=== PATIENT | female | born 1940 | race Caucasian/White ===

== ENCOUNTER 2017-08-15 07:41 | Outpatient (CLI) | payer BC | END 2017-08-15 07:42 | disposition home or self-care (01) | LOC: BICMRI 07:41 | PROVIDERS: ATTEND Orthopaedic Surgery | DX: M25.512 Pain in left shoulder (principal); M25.511 Pain in right shoulder; M25.812 Other specified joint disorders, left shoulder; M25.811 Other specified joint disorders, right shoulder; M19.011 Primary osteoarthritis, right shoulder ==

== ENCOUNTER 2018-03-27 13:31 | Outpatient (CLI) | payer MEDICARE, BC | END 2018-03-27 13:32 | disposition home or self-care (01) | LOC: BICULT 13:31 | PROVIDERS: ATTEND Physician Assistant | DX: R10.11 Right upper quadrant pain (principal) | CPT/HCPCS: 76705 ==

== ENCOUNTER 2018-07-10 16:15 | Outpatient (CLI) | payer MEDICARE | END 2018-07-10 16:16 | disposition home or self-care (01) | LOC: BICMAMMO 16:15 | PROVIDERS: ATTEND Family Medicine | DX: Z12.31 Encounter for screening mammogram for malignant neoplasm of breast (principal); R92.1 Mammographic calcification found on diagnostic imaging of breast | CPT/HCPCS: 77063; 77067 ==

== ENCOUNTER 2019-07-12 16:05 | Outpatient (CLI) | payer MEDICARE ==
--- NOTE | 2019-07-12 16:27 | MMO ---
Bilateral MAMMO Bilat Screen [facility]. CLINICAL HISTORY: Patient is 78 years old and is seen for screening. The patient has no family history of breast cancer. The patient has no personal history of cancer. VIEWS: The views performed were: bilateral craniocaudal with tomosynthesis and bilateral mediolateral oblique with tomosynthesis. FILMS COMPARED: The present examination has been compared to prior imaging studies performed at [facility] on 10/20/2013, 02/01/2015, 02/23/2016 and 07/10/2018. This study has been interpreted with the assistance of computer-aided detection. MAMMOGRAM FINDINGS: There are scattered fibroglandular densities. There are stable benign appearing calcifications seen in both breasts. There are no suspicious masses, suspicious calcifications, or new areas of architectural distortion. IMPRESSION: THERE IS NO MAMMOGRAPHIC EVIDENCE OF MALIGNANCY. A ROUTINE FOLLOW-UP MAMMOGRAM IN 1 YEAR IS RECOMMENDED. THE RESULTS OF THIS EXAM WERE SENT TO THE PATIENT. ACR BI-RADS Category 2 - Benign finding MAMMOGRAPHY NOTE: 1. A negative mammogram report should not delay a biopsy if a dominant of clinically suspicious mass is present. 2. Approximately 10% to 15% of breast cancers are not detected by mammography. 3. Adenosis and dense breasts may obscure an underlying neoplasm. Reported by: CASANDRA CRUZ MD Electonically Signed: [id number]
== END 2019-07-12 16:06 | disposition home or self-care (01) ==
LOC: BICMAMMO 16:05
PROVIDERS: ATTEND Family Medicine
DX: Z12.31 Encounter for screening mammogram for malignant neoplasm of breast (principal)
CPT/HCPCS: 77063; 77067

== ENCOUNTER 2019-07-28 12:53 | Outpatient (CLI) | payer MEDICARE ==
--- NOTE | 2019-07-28 13:28 | RAD ---
RIGHT KNEE TWO VIEWS: HISTORY: Bilateral primary osteoarthritis. COMPARISON: None. FINDINGS: There is articular surface remodeling and joint space height loss of the lateral compartment with scl erosis and osteophyte formation. Small joint effusion. There is moderate osteophyte formation of the patella. Small marginal osteophytes in the medial compartment. IMPRESSION: High-grade tricompartment degenerative change, greatest in the lateral compartment. POS: TPC
--- NOTE | 2019-07-28 13:29 | RAD ---
LEFT KNEE TWO VIEWS: HISTORY: Bilateral primary osteoarthritis of the knee. FINDINGS: Mild arthrosis changes involving all three compartments. No acute fracture or dislocation. IMPRESSION: Mild left knee arthrosis. POS: OFF
== END 2019-07-28 12:54 | disposition home or self-care (01) ==
LOC: BICRAD 12:53
PROVIDERS: ATTEND Internal Medicine Rheumatology
DX: M17.0 Bilateral primary osteoarthritis of knee (principal)

== ENCOUNTER 2019-11-12 11:55 | Outpatient (CLI) | payer MEDICARE ==
--- NOTE | 2019-11-12 15:19 | MRI ---
MRI OF THE LEFT KNEE 11/12/19 PROVIDED CLINICAL HISTORY: Pain. FINDINGS: Comparison is made with radiographs dated 07/28/19. The anterior cruciate ligament, posterior cruciate ligament, medial collateral ligament and lateral c ollateral ligamentous complex demonstrate an intact MR appearance as does the extensor mechanism. The re is high grade partial thickness insertional tearing involving the semimembranosus tendon. There is conspicuous alteration involving the subarticular portions of the central weightbearing medi al femoral condyle and medial tibial plateau. There is associated depression of the cortical bone inv olving the medial femoral condyle with diminished signal intensity on T1 and T2 sequences involving t he subchondral bone. There is extensive articular cartilage absence involving the central weightbeari ng portions of the medial femorotibial joints. There is an 8 mm intra-articular body within the centr al aspects of the suprapatellar bursa in the immediate prefemoral region. There is a displaced flap tear involving the body of the lateral meniscus. There is extensive complex degenerative tearing involving the body of the medial meniscus as well as a full thickness root tear involving the posterior root. There is articular cartilage absence involving much of the medial facet of the patella. Articular car tilage irregularity is seen involving the lateral femoral condyle posteriorly. There is a large knee joint effusion with ruptured Mcgee's cyst. Regional muscular signal appears unr emarkable. IMPRESSION: 1. Medial and lateral meniscal tears as described. 2. Findings compatible with advanced changes of insufficiency fracture involving the medial tibi al plateau and medial femoral condyle with extensive medial femorotibial articular chondral loss. 3. Large knee joint effusion with intra-articular body. 4. High grade partial thickness insertional tearing of the semimembranosus. POS: VANESA
== END 2019-11-12 11:56 | disposition home or self-care (01) ==
LOC: MRI 11:55
PROVIDERS: ATTEND Internal Medicine Rheumatology
DX: M17.12 Unilateral primary osteoarthritis, left knee (principal); S83.282A Other tear of lateral meniscus, current injury, left knee, initial encounter; S83.242A Other tear of medial meniscus, current injury, left knee, initial encounter; M25.462 Effusion, left knee

== ENCOUNTER 2020-01-10 05:05 | Day surgery (SDC) | payer MEDICARE ==
[2020-01-03 11:19] VITALS: BMI 25.0
--- NOTE | 2020-01-06 13:26 | HP ---
HISTORY OF PRESENT ILLNESS: The patient is an 79-year-old female with a long history of progressive degenerative arthritis of both knees. Initially, her right knee bothers her the most, but over the past 6 months, she has noticed progressive problems with the left knee without injury. Her pain has progressed to the point of almost incapacitation with difficulty walking, sleeping, getting dressed. She has had progressive symptoms despite restriction of activities, anti-inflammatory medications, cortisone and Synvisc injections. PAST MEDICAL HISTORY: As noted above. The patient has history of hyperlipidemia, hypertension, and thyroid problems. She recently had an episode of cellulitis of her left arm, which resolved with antibiotics. CURRENT MEDICATIONS: Include: 1. Losartan. 2. Duloxetine. 3. Levothyroxine. 4. Calcium. 5. Simvastatin. 6. Celebrex. 7. Risedronate. 8. Propranolol. ALLERGIES: SHE HAS NO KNOWN ALLERGIES. FAMILY HISTORY: Otherwise unremarkable. SOCIAL HISTORY: Otherwise unremarkable. REVIEW OF SYSTEMS: Otherwise unremarkable. The patient lives with her . PHYSICAL EXAMINATION: GENERAL: Reveals a healthy female. HEENT: Unremarkable. NECK: Supple. CHEST: Clear. HEART: Regular rate and rhythm. ABDOMEN: Soft, nontender. PELVIC: Deferred. RECTAL: Deferred. BREASTS: Deferred. EXTREMITIES: Pertinent findings related to her knees, examination of the left knee reveals mild varus. There is puffiness, but no definite effusion. There is tenderness on the medial joint line, crepitus with range of motion. Range of motion is 5 to 120 degrees. There is good capillary refill. There are mild venous varicosities. There is a left antalgic gait. NEUROVASCULAR: Intact. Examination of the right knee reveals mild valgus and lateral joint line tenderness or crepitus with range of motion. 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 X-rays of the right knee reveal severe DJD with minimal joint space remaining. IMPRESSION: Degenerative arthritis of both knees, left symptomatic more than right with probable osteonecrosis. PLAN: Left total knee replacement. She may ultimately require right total knee replacement. Her hospital stay may be longer than usual because of the significant arthritis and her contralateral knee. The nature of the surgery, length, recovery, potential complications such as infection, loss of motion, incomplete relief, thromboembolic phenomena, neurovascular injury, possible transfusion, and need for revision have been discussed in detail. Job ID: [id number]
[2020-01-10] MEDS ORDERED: Vancomycin 1 GM/200 ML BAG ONE (06:05)
[2020-01-10] MEDS ORDERED: Sodium Chloride 0.9% 100 ML ONE (06:05)
[2020-01-10] MEDS ORDERED: Tranexamic Acid 1,000 MG/10 ML VIAL ONE ×2 (06:05→09:20)
[2020-01-10] MEDS ORDERED: Fentanyl 100 MCG/2 ML VIAL ONE ×4 (06:17→09:49)
[2020-01-10] MEDS ORDERED: Midazolam HCl 2 mg/2 ml Vial ONE (06:17)
[2020-01-10] MEDS ORDERED: Lidocaine 1% (PF) 30 ML VIAL ONE (06:17)
[2020-01-10] MEDS ORDERED: Lidocaine 1% w/Epinephrine 1:100K 20 ML VIAL ONE (06:38)
[2020-01-10] MEDS ORDERED: Bupivacaine 0.25% HCL 30 ML VIAL ONE (06:38)
[2020-01-10] MEDS ORDERED: traMADol HCl 50 MG TAB PO PRN ×3 (06:51→09:11)
[2020-01-10] MEDS ORDERED: Ropivacaine HCl/PF 250 ML in Premix Bag 1 BAG NERVE BLCK SCH (06:51)
[2020-01-10] MEDS ORDERED: Promethazine HCl 25 MG/ML VIAL IM PRN ×2 (06:51→09:45)
[2020-01-10] MEDS ORDERED: Ondansetron PF 4 MG/2 ML Vial IVP PRN ×3 (06:51→09:45)
[2020-01-10] MEDS ORDERED: HYDROcodone/Acetaminophen 10/325 mg Tablet PO PRN ×4 (06:51→09:11)
[2020-01-10] MEDS ORDERED: Zolpidem Tartrate 5 MG TAB PO PRN ×3 (06:51→09:45)
[2020-01-10] MEDS ORDERED: Fentanyl 100 MCG/2 ML VIAL IV PRN (06:52)
[2020-01-10] MEDS ORDERED: Ondansetron HCl/PF 4 MG/2 ML Vial IVP PRN (09:04)
[2020-01-10] MEDS ORDERED: ESTRADIOL PO SCH (09:11)
[2020-01-10] MEDS ORDERED: diphenhydrAMINE 25 MG CAP PO PRN ×2 (09:11→09:45)
[2020-01-10] MEDS ORDERED: RISEDRONATE SODIUM 35 MG PO SCH (09:11)
[2020-01-10] MEDS ORDERED: Levothyroxine Sodium 88 MCG TAB PO SCH (09:11)
[2020-01-10] MEDS ORDERED: Tranexamic Acid 1,000 MG in Sodium Chloride 0.9% 100 ML IVPB SCH ×2 (09:11→09:15)
[2020-01-10] MEDS ORDERED: Fentanyl 100 MCG/2 ML VIAL SLOW IVP PRN ×2 (09:11)
[2020-01-10] MEDS ORDERED: Promethazine HCl 25 MG/ML VIAL SLOW IVP PRN (09:11)
--- NOTE | 2020-01-10 09:26 | OP ---
DATE OF PROCEDURE: 01/10/2020 [employer]: Lashanda Sun PA-C ANESTHESIA: General plus adductor canal and sciatic nerve blocks. 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 DESCRIPTION OF PROCEDURE: After satisfactory anesthesia was induced in a position, sequential compression devices were placed on the nonoperative leg throughout the procedure. The left leg was then prepped and draped in a routine sterile fashion, elevated and exsanguinated with an Esmarch bandage and the tourniquet inflated to 300 mmHg. A gently curved medial parapatellar incision was made, carried down to the subcutaneous tissues, and bleeding points were controlled with Bovie cautery. Medial parapatellar arthrotomy was performed. Patella was cleared laterally and portion of the fat pad were excised for exposure. There was marked degenerative arthritis of the knee, especially medially. There was a large area of osteonecrosis and partial collapse of the medial femoral condyle. It did not involve the rim. There was some lesion on the medial tibial plateau. Meniscal remnants and osteophytes were removed. Using the [employer] pinless navigation system and the appropriate guides, the distal femoral and proximal tibial articular surfaces were excised to accept the trial components. After excising the distal femoral surface, there was still slight defect in the femur, which was only a few mm thick. This did not appear to compromise the stability of the implants. I elected to fill this with bone cement instead of bone graft. It was felt that a #4 femoral component and #4 tibial baseplate with 11 mm CS plastic insert gave appropriate size, fit, and stability. The patellar articular surface was sized to accept an all-plastic A29 patellar component. There was good range of motion and good patellar tracking. The trial components were removed. The knee was copiously irrigated with pulsatile lavage, and the bony surfaces were thoroughly cleaned and dried. The permanent components were then cemented in a single stage using one pack of cement premixed with 1 g of tobramycin powder. Excess cement was removed. There was again good fit and stability of the components. The knee was again copiously irrigated with pulsatile lavage. The medial retinaculum and quadriceps mechanism was closed with interrupted #2 Vicryl and a running #2 Quill. The subcutaneous tissues and skin were infiltrated with a mixture of 30 mL of 0.25% plain Marcaine and 20 mL of 1% lidocaine with epinephrine. The subcutaneous tissues were closed with a running 0 Quill suture and the skin was closed with running subcuticular 3-0 Monoderm and Surgicel skin adhesive. Sterile bulky compressive dressing was applied and the tourniquet was deflated after 76 minutes. The foot promptly pinked up. Sequential compression devices were placed on the operated leg and she was awakened and taken to recovery room in stable condition. There were no apparent intraoperative complications. The estimated blood loss was less than 100 mL. Job ID: [id number] [facility]
--- NOTE | 2020-01-10 09:42 | RAD ---
Exam:2 views left knee HISTORY: Status post arthroplasty. Primary osteoarthritis. COMPARISON: 07/28/2019 FINDINGS: Expected postoperative changes. Preserved joint spaces. No malalignment or fracture. IMPRESSION: Expected postoperative changes compatible with left knee arthroplasty
[2020-01-10] MEDS ORDERED: diphenhydrAMINE 50 MG/ML VIAL IVP PRN (09:45)
[2020-01-10] MEDS ORDERED: Communication Order-Pharmacy FS SCH (09:45)
[2020-01-10] MEDS ORDERED: Naloxone HCl 0.4 mg/ml Vial IV PRN (09:45)
[2020-01-10] MEDS ORDERED: fentaNYL Citrate/PF 2,000 MCG in Sodium Chloride 0.9% 60 ML IV PRN (09:45)
[2020-01-10] MEDS ORDERED: diphenhydrAMINE 50 MG/ML VIAL IM PRN (09:45)
[2020-01-10] MEDS ORDERED: Ropivacaine 0.2% HCl/PF (40 MG/20 ML VIAL) ONE (11:07)
[2020-01-10] MEDS ORDERED: Ondansetron PF 4 MG/2 ML Vial ONE (11:07)
[2020-01-10] MEDS ORDERED: Ropivacaine 0.5% HCl/PF (150 MG/30 ML VIAL) ONE (11:07)
[2020-01-10] MEDS ORDERED: PROPOFOL 200 MG/20 ML VIAL ONE (11:07)
[2020-01-10] MEDS ORDERED: Ketorolac Tromethamine 30 MG/ML VIAL ONE (11:07)
[2020-01-10] MEDS ORDERED: Dexamethasone 20 MG/5 ML VIAL ONE (11:07)
[2020-01-10] MEDS: Sodium Chloride 0.9% 1,000 ML IV SCH ×2 (11:45→17:38)
[2020-01-10] MEDS ORDERED: Ketorolac Tromethamine 30 MG/ML VIAL IVP SCH ×2 (12:00)
[2020-01-10] MEDS ORDERED: RISEDRONATE SODIUM PO SCH (12:00)
[2020-01-10] MEDS: CEFAZOLIN 2 GM in Premix Bag 1 BAG IVPB SCH ×2 (14:58→21:41)
[2020-01-10] MEDS ORDERED: Vancomycin 1 GM in Premix Bag 1 BAG IVPB SCH (18:00)
[2020-01-10] MEDS ORDERED: Simvastatin 40 MG TAB PO SCH (21:00)
[2020-01-10] MEDS: Atorvastatin Calcium 20 MG TAB PO SCH (21:40)
[2020-01-10] MEDS: Senokot S 8.6-50 MG TAB PO SCH (21:40)
[2020-01-10] MEDS: Aspirin 81 mg Enteric Coated Tablet PO SCH (21:40)
[2020-01-11 05:13] LABS: Hemoglobin 10.3 g/dL (12.0-16.0); Mean Corpuscular HGB CONC 32.1 g/dL (32.0-36.0); Mean Corpuscular Hemoglobin 31.4 pg (27.0-31.0); Mean Corpuscular Volume 97.7 fL (78.0-98.0); Platelet Count 244 thou/uL (130-400); RBC Distribution Width 11.5 % (11.5-14.5); Red Blood Cell (RBC) Count 3.28 mill/uL (4.20-5.40); White Blood Cell (WBC) Count 12.1 thou/uL (4.8-10.8)
[2020-01-11] MEDS: Sodium Chloride 0.9% 1,000 ML IV SCH ×2 (07:19→11:15)
[2020-01-11] MEDS: Losartan/Hydrochlorothiazide 100 mg/25 mg Tablet PO SCH (09:47)
[2020-01-11] MEDS: Estradiol 1 MG TAB PO SCH (09:48)
[2020-01-11] MEDS: DULoxetine 60 MG CAP PO SCH (09:48)
[2020-01-11] MEDS: Aspirin 81 mg Enteric Coated Tablet PO SCH ×2 (09:48→20:31)
[2020-01-11] MEDS: Levothyroxine Sodium 88 MCG TAB PO SCH (09:48)
[2020-01-11] MEDS: Multivitamin W/ Minerals 1 TAB PO SCH (09:48)
[2020-01-11] MEDS: Senokot S 8.6-50 MG TAB PO SCH ×2 (09:48→20:31)
[2020-01-11] MEDS ORDERED: Ketorolac Tromethamine 30 MG/ML VIAL IVP PRN (15:39)
[2020-01-11] MEDS ORDERED: Ketorolac Tromethamine 30 MG/ML VIAL IVP SCH (15:45)
[2020-01-11] MEDS: Acetaminophen 325 MG TAB PO PRN (15:55)
[2020-01-11] MEDS: Atorvastatin Calcium 20 MG TAB PO SCH (20:31)
[2020-01-12] MEDS: Sodium Chloride 0.9% 1,000 ML IV SCH ×2 (01:03→12:45)
[2020-01-12] MEDS: Acetaminophen 325 MG TAB PO PRN (04:06)
[2020-01-12] MEDS: DULoxetine 60 MG CAP PO SCH (08:55)
[2020-01-12] MEDS: Aspirin 81 mg Enteric Coated Tablet PO SCH (08:55)
[2020-01-12] MEDS: Losartan/Hydrochlorothiazide 100 mg/25 mg Tablet PO SCH (08:55)
[2020-01-12] MEDS: Estradiol 1 MG TAB PO SCH (08:56)
[2020-01-12] MEDS: Levothyroxine Sodium 88 MCG TAB PO SCH (08:57)
[2020-01-12] MEDS: Senokot S 8.6-50 MG TAB PO SCH (08:57)
[2020-01-12] MEDS: Multivitamin W/ Minerals 1 TAB PO SCH (08:57)
[2020-01-12] MEDS ORDERED: HYDROcodone/Acetaminophen 10/325 mg Tablet PO PRN ×4 (10:29→11:22)
[2020-01-12] MEDS ORDERED: traMADol HCl 50 MG TAB PO PRN (10:29)
[2020-01-12] MEDS ORDERED: HYDROcodone/Acetaminophen 10/325 mg Tablet PO SCH ×2 (10:30→10:45)
[2020-01-12] MEDS ORDERED: Fentanyl 100 MCG/2 ML VIAL SLOW IVP PRN (10:30)
[2020-01-12] MEDS ORDERED: DC PCA Order Set 1 EACH FS ONE (11:22)
[2020-01-12 11:53] VITALS: BP 126/72; TEMP 97.7
== END 2020-01-12 15:28 | disposition home or self-care (01) ==
LOC: SDC 05:05 → SJJU 11:23 → SDC 01-12 15:28
PROVIDERS: ATTEND Orthopaedic Surgery
PROC: 0SRD0J9 Replacement of Left Knee Joint with Synthetic Substitute, Cemented, Open Approach (ICD-10-PCS; principal; 2020-01-10)
PROC: 8E0YXBZ Computer Assisted Procedure of Lower Extremity (ICD-10-PCS; 2020-01-10)
PROC: 3E0T3BZ Introduction of Anesthetic Agent into Peripheral Nerves and Plexi, Percutaneous Approach (ICD-10-PCS; 2020-01-10)
PROC: 3E0T3BZ Introduction of Anesthetic Agent into Peripheral Nerves and Plexi, Percutaneous Approach (ICD-10-PCS; 2020-01-10)
DX: M17.0 Bilateral primary osteoarthritis of knee (principal); M87.88 Other osteonecrosis, other site; M21.061 Valgus deformity, not elsewhere classified, right knee; G89.18 Other acute postprocedural pain; E78.5 Hyperlipidemia, unspecified; I10 Essential (primary) hypertension; Z79.83 Long term (current) use of bisphosphonates; Z79.899 Other long term (current) drug therapy
CPT/HCPCS: 20985; 27447; 64445; 64448; 73560; 85027; 97110 ×3; 97116 ×3; 97139 ×4; 97530; C1713; C1776; J3010 ×2; 36415; J0690; J1100; J1885; J2001; J2250; J2405; J2704; J2795; J3370; J3490; S0020

== ENCOUNTER 2020-07-14 10:29 | Outpatient (CLI) | payer MEDICARE ==
--- NOTE | 2020-07-14 11:28 | MMO ---
Bilateral MAMMO Bilat Screen [facility]. CLINICAL HISTORY: Patient is 79 years old and is seen for screening. The patient has no family history of breast cancer. The patient has no personal history of cancer. VIEWS: The views performed were: bilateral craniocaudal with tomosynthesis and bilateral mediolateral oblique with tomosynthesis. FILMS COMPARED: The present examination has been compared to prior imaging studies performed at [facility] on 02/01/2015, 02/23/2016, 07/10/2018 and 07/12/2019. This study has been interpreted with the assistance of computer-aided detection. MAMMOGRAM FINDINGS: There are scattered fibroglandular densities. There are stable benign appearing calcifications seen in both breasts. There are no suspicious masses, suspicious calcifications, or new areas of architectural distortion. IMPRESSION: THERE IS NO MAMMOGRAPHIC EVIDENCE OF MALIGNANCY. A ROUTINE FOLLOW-UP MAMMOGRAM IN 1 YEAR IS RECOMMENDED. THE RESULTS OF THIS EXAM WERE SENT TO THE PATIENT. ACR BI-RADS Category 2 - Benign finding MAMMOGRAPHY NOTE: 1. A negative mammogram report should not delay a biopsy if a dominant of clinically suspicious mass is present. 2. Approximately 10% to 15% of breast cancers are not detected by mammography. 3. Adenosis and dense breasts may obscure an underlying neoplasm. Reported by: CASANDRA CRUZ MD Electonically Signed: [id number]
--- NOTE | 2020-07-14 11:36 | BD ---
BONE DENSITOMETRY USING DEXA: Date: 07/14/2020 HISTORY: Postmenopausal screening for osteoporosis. FINDINGS: Lumbar Spine: BMD (g/cm2) L1 0.949 T-Score: -0.4 Z-Score: 2.0 L2 0.988 T-Score: -0.4 Z-Score: 2.3 L3 1.133 T-Score: 0.4 Z-Score: 3.2 L4 1.329 T-Score: 2.4 Z-Score: 5.3 L1-L4 1.130 T-Score: 0.8 Z-Score: 3.5 Right Hip: Neck 0.714 T-Score: -1.2 Z-Score: 1.1 Total 0.872 T-Score: -0.6 Z-Score: 1.5 Left Hip: Neck 0.707 T-Score: -1.3 Z-Score: 1.1 Total 0.814 T-Score: -1.0 Z-Score: 1.1 IMPRESSION: Osteopenia. POS: RIA
== END 2020-07-14 10:30 | disposition home or self-care (01) ==
LOC: BICMAMMO 10:29
PROVIDERS: ATTEND Family Medicine
DX: Z12.31 Encounter for screening mammogram for malignant neoplasm of breast (principal); M81.0 Age-related osteoporosis without current pathological fracture; M85.851 Other specified disorders of bone density and structure, right thigh; M85.852 Other specified disorders of bone density and structure, left thigh
CPT/HCPCS: 77063; 77067; 77080

== ENCOUNTER 2021-06-11 14:30 | Outpatient (CLI) | payer MEDICARE | END 2021-06-11 14:31 | disposition home or self-care (01) | LOC: BICRAD 14:30 | PROVIDERS: ATTEND Family Medicine | DX: R42 Dizziness and giddiness (principal) | CPT/HCPCS: 71046 ==

== ENCOUNTER 2021-07-10 07:03 | Day surgery (SDC) | payer MEDICARE ==
[2021-07-05 11:39] VITALS: BMI 25.2
[2021-07-10 07:55] VITALS: BP 134/58; TEMP 97.8
[2021-07-10 10:37] LABS: CSF, Glucose 60 mg/dl (40-70); CSF, Protein 46 mg/dL (15-40)
[2021-07-10 10:47] LABS: Color Of CSF Supernatant COLORLESS (Colorless); Tube # 1; Unspun CSF Color COLORLESS (Colorless)
[2021-07-10 11:23] LABS: CSF RBC Count - Manual 0 /cu.mm (None Seen); CSF Source CSF; CSF WBC/NonHematics Count-Man 0 /cu.mm (0-5); Clarity Clear (Clear); Tube # 4
== END 2021-07-10 10:15 | disposition home or self-care (01) ==
LOC: RAD 07:03
PROVIDERS: ATTEND Psychiatry & Neurology Neurology
PROC: 009U3ZX Drainage of Spinal Canal, Percutaneous Approach, Diagnostic (ICD-10-PCS; principal; 2021-07-10)
DX: G93.2 Benign intracranial hypertension (principal); I10 Essential (primary) hypertension; E78.5 Hyperlipidemia, unspecified; E03.9 Hypothyroidism, unspecified; G25.81 Restless legs syndrome; M75.41 Impingement syndrome of right shoulder; M75.42 Impingement syndrome of left shoulder; F17.210 Nicotine dependence, cigarettes, uncomplicated; M19.90 Unspecified osteoarthritis, unspecified site; Z86.73 Personal history of transient ischemic attack (TIA), and cerebral infarction without residual deficits; Z79.899 Other long term (current) drug therapy
CPT/HCPCS: 62270; 82945; 84157; 89051

== ENCOUNTER 2021-07-27 10:16 | Outpatient (CLI) | payer MEDICARE | END 2021-07-27 10:17 | disposition home or self-care (01) | LOC: BICMAMMO 10:16 | PROVIDERS: ATTEND Family Medicine | DX: Z12.31 Encounter for screening mammogram for malignant neoplasm of breast (principal); M81.0 Age-related osteoporosis without current pathological fracture; M85.852 Other specified disorders of bone density and structure, left thigh; M85.851 Other specified disorders of bone density and structure, right thigh | CPT/HCPCS: 77063; 77067; 77080 ==

== ENCOUNTER 2021-08-01 08:37 | Outpatient (CLI) | payer MEDICARE ==
[2021-08-01] MEDS ORDERED: Iopamidol-370 76% 500 ML 1 ML ONE (09:31)
== END 2021-08-01 08:38 | disposition home or self-care (01) ==
LOC: BICCT 08:37
PROVIDERS: ATTEND Psychiatry & Neurology Neurology
DX: G44.221 Chronic tension-type headache, intractable (principal)
CPT/HCPCS: 70470; 82565; Q9967

== ENCOUNTER 2021-10-18 09:29 | Outpatient (CLI) | payer MEDICARE | END 2021-10-18 09:30 | disposition home or self-care (01) | LOC: BICCT 09:29 | PROVIDERS: ATTEND Physician Assistant Medical | DX: R10.32 Left lower quadrant pain (principal); K59.00 Constipation, unspecified; R14.0 Abdominal distension (gaseous); R14.2 Eructation | CPT/HCPCS: 74177; 82565 ==

== ENCOUNTER 2022-04-16 09:38 | Outpatient (CLI) | payer MEDICARE | END 2022-04-16 09:39 | disposition home or self-care (01) | LOC: MRI 09:38 | PROVIDERS: ATTEND Psychiatry & Neurology Neurology | DX: G93.2 Benign intracranial hypertension (principal); I67.89 Other cerebrovascular disease | CPT/HCPCS: 70551 ==

== ENCOUNTER 2022-09-02 05:34 | Inpatient (IN) | payer MEDICARE ==
[2022-08-28 11:53] LABS: #Basophils 0.1 10x3/uL (0.0-0.2); #Monocytes 0.7 10x3/uL (0.0-1.1); #Neutrophils 3.5 10x3/uL (1.5-8.4); %Eosinophils 0.5 % (0.0-6.0); %Lymphocytes 27.3 % (18.0-47.0); %Monocytes 11.9 % (0.0-10.0); %Neutrophils 59.1 % (40.0-75.0); Bilirubin Neg (Negative); Blood, Urine Negative (Negative); Clarity Clear (Clear); Glucose, Urine (Dipstick) Normal (Negative); Hemoglobin 13.3 g/dL (12.0-15.5); Ketone, Urine Negative (Negative); Leukocyte Negative (Negative); Mean Corpuscular HGB CONC 32.5 g/dL (32.0-36.0); Mean Corpuscular Hemoglobin 30.3 pg (27.0-33.0); Mean Corpuscular Volume 93.2 fl (81.6-98.3); Mean Platelet Volume 11.7 fl (7.4-10.4); Nitrite Negative (Negative); Platelet Count 251 10x3/uL (150-450); Protein, Urine (Dipstick) Negative (Neg-Trace); Red Blood Cell (RBC) Count 4.39 10x6/uL (3.90-5.03); Urobilinogen Normal mg/dL (Less than 2)
[2022-08-28 12:06] LABS: INR-International Normal Ratio 0.9
[2022-08-28 12:08] LABS: Anion Gap 16 mmol/L (10-20); BUN (Urea Nitrogen) 25 mg/dL (9.8-20.1); Calc. Creatinine Clearance 0 mL/min (70-130); Calcium 9.7 mg/dL (7.8-10.44); Carbon Dioxide 24 mmol/L (23-31); Chloride 103 mmol/L (98-107); Estimated GFR 54; Glucose 90 mg/dL (83-110); Potassium 3.7 mmol/L (3.5-5.1); Sodium 139 mmol/L (136-145)
[2022-08-29 15:42] VITALS: BMI 28.5
[2022-09-02] MEDS ORDERED: fentaNYL PF 100 MCG/2 ML SYRINGE ONE ×2 (05:47→08:40)
[2022-09-02] MEDS ORDERED: PHENYLEPHRINE-NS 100 MCG/ML 10 ML SYRINGE ONE (05:48)
[2022-09-02] MEDS ORDERED: CEFAZOLIN 2 GM VIAL ONE ×2 (06:20→06:52)
[2022-09-02] MEDS ORDERED: Sodium Chloride 0.9% 100 ML ONE ×2 (06:20→06:52)
[2022-09-02] MEDS ORDERED: Tranexamic Acid 1,000 MG/10 ML VIAL ONE ×2 (06:20→09:31)
[2022-09-02] MEDS ORDERED: Vancomycin 1 GM/200 ML (FROZEN) BAG ONE (06:24)
[2022-09-02] MEDS ORDERED: Midazolam HCl 2 mg/2 ml Vial ONE (06:29)
[2022-09-02] MEDS ORDERED: PROPOFOL 200 MG/20 ML VIAL ONE (06:30)
[2022-09-02] MEDS ORDERED: Dexamethasone 20 MG/5 ML VIAL ONE (06:30)
[2022-09-02] MEDS ORDERED: ePHEDrine 50 MG/ML VIAL ONE (06:30)
[2022-09-02] MEDS ORDERED: Lidocaine 1% PF 5 ML VIAL ONE (06:30)
[2022-09-02] MEDS ORDERED: Ondansetron PF 4 MG/2 ML Vial ONE (06:30)
[2022-09-02] MEDS ORDERED: Ketorolac Tromethamine 30 MG/ML VIAL ONE (06:30)
[2022-09-02 06:42] LABS: SARS-CoV-2 NAA Rapid Test Not Detected (NotDetected)
[2022-09-02] MEDS ORDERED: Bupivacaine 0.25% HCL 30 ML VIAL ONE (06:52)
[2022-09-02] MEDS ORDERED: Lidocaine 2% 6 ML SYR ONE (07:16)
[2022-09-02] MEDS ORDERED: Ondansetron PF 4 MG/2 ML Vial IVP PRN (07:23)
[2022-09-02] MEDS ORDERED: Promethazine HCl 25 MG/ML VIAL IM PRN ×2 (07:23→08:00)
[2022-09-02] MEDS ORDERED: Acetaminophen 325 MG TAB PO PRN (07:23)
[2022-09-02] MEDS ORDERED: Fentanyl 100 MCG/2 ML VIAL SLOW IVP PRN ×2 (07:23→07:58)
[2022-09-02] MEDS ORDERED: HYDROcodone/Acetaminophen 10/325 mg Tablet PO PRN ×3 (07:23→08:00)
[2022-09-02] MEDS ORDERED: diphenhydrAMINE 25 MG CAP PO PRN (07:23)
[2022-09-02] MEDS ORDERED: Zolpidem Tartrate 5 MG TAB PO PRN ×2 (07:23→08:00)
[2022-09-02] MEDS ORDERED: Non-Formulary Item 1 EACH (Ibandronate Sodium [Boniva] 150 MG Tablet) PO SCH (07:30)
[2022-09-02] MEDS ORDERED: Tranexamic Acid 1,000 MG in Sodium Chloride 0.9% 100 ML IVPB SCH (07:30)
[2022-09-02] MEDS ORDERED: traMADol HCl 50 MG TAB PO PRN (08:00)
[2022-09-02] MEDS ORDERED: Ropivacaine 0.2% 550 ML 550 ML NERVE BLCK SCH (08:00)
[2022-09-02] MEDS ORDERED: EPINEPHrine 1 MG/ML AMP ONE (08:01)
[2022-09-02] MEDS ORDERED: Lidocaine 1% (PF) 30 ML VIAL ONE (08:01)
[2022-09-02] MEDS ORDERED: Bupivacaine PF 0.5% 30 ML VIAL ONE (08:01)
[2022-09-02] MEDS ORDERED: Non-Formulary Item 1 EACH (Estradiol [Estradiol] 0.5 MG Tablet) PO SCH (09:00)
[2022-09-02] MEDS ORDERED: TOPIRAMATE 50 MG PO SCH (09:00)
[2022-09-02] MEDS ORDERED: Levothyroxine Sodium 88 MCG TAB PO SCH (09:00)
[2022-09-02] MEDS ORDERED: Fentanyl 250 MCG/5 ML VIAL ONE (09:24)
[2022-09-02] MEDS ORDERED: HYDROmorphone 0.5 MG/0.5 ML SYRINGE ONE ×4 (10:12→13:16)
[2022-09-02] MEDS ORDERED: Ketorolac Tromethamine 30 MG/ML VIAL IVP SCH ×2 (12:00→14:00)
[2022-09-02] MEDS: Senokot S 8.6-50 MG TAB PO SCH ×2 (15:56→21:06)
[2022-09-02] MEDS: Losartan/Hydrochlorothiazide 100 mg/25 mg Tablet PO SCH (15:56)
[2022-09-02] MEDS: Multivitamin W/ Minerals 1 TAB PO SCH (15:56)
[2022-09-02] MEDS: Estradiol 1 MG TAB PO SCH (15:56)
[2022-09-02] MEDS: Aspirin 81 mg Enteric Coated Tablet PO SCH ×2 (15:56→21:04)
[2022-09-02] MEDS: Levothyroxine Sodium 88 MCG TAB PO SCH (15:56)
[2022-09-02] MEDS: Ferrous Gluconate 324 MG TAB PO SCH ×2 (15:56→21:06)
[2022-09-02] MEDS: Topiramate 25 MG TAB PO SCH ×3 (15:57→21:45)
[2022-09-02] MEDS: Sodium Chloride 0.9% 1,000 ML IV SCH ×2 (16:22→17:01)
[2022-09-02] MEDS: CEFAZOLIN 2 GM in Sodium Chloride 0.9% 100 ML IVPB SCH ×2 (16:22→21:04)
[2022-09-02] MEDS: Ketorolac Tromethamine 30 MG/ML VIAL IVP SCH ×2 (16:23→21:05)
[2022-09-02] MEDS: traMADol HCl 50 MG TAB PO PRN (17:17)
[2022-09-02] MEDS ORDERED: Vancomycin 1 GM in Premix Bag 1 BAG IVPB SCH ×2 (18:00)
[2022-09-02] MEDS ORDERED: Simvastatin 40 MG TAB PO SCH (21:00)
[2022-09-02] MEDS: Metoprolol Tartrate 25 MG TAB PO SCH (21:06)
[2022-09-02] MEDS: HYDROcodone/Acetaminophen 10/325 mg Tablet PO PRN (21:06)
[2022-09-02] MEDS: Atorvastatin Calcium 20 MG TAB PO SCH (21:06)
[2022-09-02] MEDS: Ondansetron PF 4 MG/2 ML Vial IVP PRN (21:45)
[2022-09-03] MEDS: Ketorolac Tromethamine 30 MG/ML VIAL IVP SCH ×3 (03:26→17:39)
[2022-09-03] MEDS: Sodium Chloride 0.9% 1,000 ML IV SCH ×4 (03:46→22:10)
[2022-09-03] MEDS: CEFAZOLIN 2 GM in Sodium Chloride 0.9% 100 ML IVPB SCH ×2 (04:58→04:59)
[2022-09-03] MEDS ORDERED: CEFAZOLIN 2 GM in Sodium Chloride 0.9% 100 ML IVPB SCH (05:00)
[2022-09-03] MEDS: Ondansetron PF 4 MG/2 ML Vial IVP PRN ×2 (05:47→11:28)
[2022-09-03 06:21] LABS: Hemoglobin 11.8 g/dL (12.0-16.0); Mean Corpuscular HGB CONC 32.1 g/dL (32.0-36.0); Mean Corpuscular Hemoglobin 31.8 pg (27.0-31.0); Mean Platelet Volume 8.2 fL (7.4-10.4); Platelet Count 189 10x3/uL (130-400); RBC Distribution Width 11.7 % (11.5-14.5); White Blood Cell (WBC) Count 10.3 10x3/uL (4.8-10.8)
[2022-09-03] MEDS ORDERED: Promethazine HCl 12.5 MG in Sodium Chloride 0.9% 50 ML IVPB SCH (10:00)
[2022-09-03] MEDS: Aspirin 81 mg Enteric Coated Tablet PO SCH ×2 (11:22→21:30)
[2022-09-03] MEDS: Ferrous Gluconate 324 MG TAB PO SCH ×2 (11:22→21:31)
[2022-09-03] MEDS: Losartan/Hydrochlorothiazide 100 mg/25 mg Tablet PO SCH (11:23)
[2022-09-03] MEDS: Senokot S 8.6-50 MG TAB PO SCH ×2 (11:23→21:30)
[2022-09-03] MEDS: Estradiol 1 MG TAB PO SCH (11:23)
[2022-09-03] MEDS: Levothyroxine Sodium 88 MCG TAB PO SCH (11:23)
[2022-09-03] MEDS: Multivitamin W/ Minerals 1 TAB PO SCH (11:25)
[2022-09-03] MEDS: Topiramate 25 MG TAB PO SCH ×2 (11:34→21:30)
[2022-09-03] MEDS: traMADol HCl 50 MG TAB PO PRN (21:28)
[2022-09-03] MEDS: Metoprolol Tartrate 25 MG TAB PO SCH (21:29)
[2022-09-03] MEDS: Atorvastatin Calcium 20 MG TAB PO SCH (21:30)
[2022-09-03] MEDS: HYDROcodone/Acetaminophen 10/325 mg Tablet PO PRN (22:17)
[2022-09-03 22:21] LABS: Anion Gap 10 mmol/L (10-20); BUN (Urea Nitrogen) 27 mg/dL (9.8-20.1); Calc. Creatinine Clearance 31 mL/min (70-130); Calcium 8.4 mg/dL (7.8-10.44); Carbon Dioxide 25 mmol/L (23-31); Chloride 104 mmol/L (98-107); Estimated GFR 36; Glucose 107 mg/dL (83-110); Potassium 3.2 mmol/L (3.5-5.1); Sodium 136 mmol/L (136-145)
[2022-09-03] MEDS ORDERED: Electrolyte Replacement Protocol 1 EACH FS SCH (22:45)
[2022-09-04] MEDS ORDERED: Potassium Chloride 20 MEQ TAB PO SCH ×2 (02:00→08:00)
[2022-09-04] MEDS: Sodium Chloride 0.9% 1,000 ML IV SCH ×3 (05:47→12:13)
[2022-09-04] MEDS: HYDROcodone/Acetaminophen 10/325 mg Tablet PO PRN (05:53)
[2022-09-04 05:56] LABS: Hemoglobin 10.6 g/dL (12.0-16.0); Mean Corpuscular HGB CONC 32.9 g/dL (32.0-36.0); Mean Corpuscular Volume 97.3 fl (78.0-98.0); Mean Platelet Volume 8.9 fL (7.4-10.4); Platelet Count 161 10x3/uL (130-400); RBC Distribution Width 11.8 % (11.5-14.5); White Blood Cell (WBC) Count 8.6 10x3/uL (4.8-10.8)
[2022-09-04 06:03] LABS: Hemoglobin 10.8 g/dL (12.0-16.0); Mean Corpuscular HGB CONC 34.3 g/dL (32.0-36.0); Mean Corpuscular Hemoglobin 33.3 pg (27.0-31.0); Mean Corpuscular Volume 97.1 fl (78.0-98.0); Mean Platelet Volume 8.6 fL (7.4-10.4); Platelet Count 158 10x3/uL (130-400); RBC Distribution Width 11.8 % (11.5-14.5); Red Blood Cell (RBC) Count 3.24 mill/uL (4.20-5.40); White Blood Cell (WBC) Count 8.5 10x3/uL (4.8-10.8)
[2022-09-04 06:17] LABS: ALT (SGPT) Less than 7 U/L (8-55); AST (SGOT) 13 U/L (5-34); Albumin 2.9 g/dL (3.4-4.8); Alkaline Phosphatase 60 U/L (40-110); Anion Gap 8 mmol/L (10-20); BUN (Urea Nitrogen) 26 mg/dL (9.8-20.1); Bilirubin, Total 0.5 mg/dL (0.2-1.2); Calc. Creatinine Clearance 36 mL/min (70-130); Calcium 8.4 mg/dL (7.8-10.44); Carbon Dioxide 24 mmol/L (23-31); Chloride 106 mmol/L (98-107); Estimated GFR 43; Globulin 2.2 g/dL (2.4-3.5); Glucose 94 mg/dL (83-110); Magnesium 1.7 mg/dL (1.6-2.6); Potassium 3.4 mmol/L (3.5-5.1); Protein, Total 5.1 g/dL (5.8-8.1); Sodium 135 mmol/L (136-145)
[2022-09-04 06:55] LABS: Lymphocytes 16 % (21-51); MDiff Complete? YES; Monocytes 23 % (0-10); Neutrophil 61 % (42-75); Platelet Morphology Comment Appears Adequate; RBC Morphology Normal
[2022-09-04] MEDS ORDERED: Magnesium 2 GM/50 ML(in water) 2 GM in Premix Bag 1 BAG IVPB SCH (08:00)
[2022-09-04] MEDS: Losartan/Hydrochlorothiazide 100 mg/25 mg Tablet PO SCH (09:03)
[2022-09-04] MEDS: Aspirin 81 mg Enteric Coated Tablet PO SCH (09:03)
[2022-09-04] MEDS: Levothyroxine Sodium 88 MCG TAB PO SCH (09:04)
[2022-09-04] MEDS: Estradiol 1 MG TAB PO SCH (09:04)
[2022-09-04] MEDS: Multivitamin W/ Minerals 1 TAB PO SCH (09:04)
[2022-09-04] MEDS: Ferrous Gluconate 324 MG TAB PO SCH (09:07)
[2022-09-04] MEDS: Senokot S 8.6-50 MG TAB PO SCH (09:08)
[2022-09-04] MEDS: Topiramate 25 MG TAB PO SCH (09:15)
[2022-09-04 11:47] VITALS: TEMP 98.2
[2022-09-04 13:15] VITALS: BP 117/74
== END 2022-09-04 13:15 | disposition home health service (06) | DRG 470 ==
LOC: SDC 05:34 → SJJU 15:37 → OBSVTOIN 09-04 11:54
PROVIDERS: ADMIT Orthopaedic Surgery; ATTEND Orthopaedic Surgery
PROC: 0SRC0J9 Replacement of Right Knee Joint with Synthetic Substitute, Cemented, Open Approach (ICD-10-PCS; principal; 2022-09-02)
DX: M17.11 Unilateral primary osteoarthritis, right knee (principal); N17.9 Acute kidney failure, unspecified; E87.1 Hypo-osmolality and hyponatremia; M21.061 Valgus deformity, not elsewhere classified, right knee; E86.0 Dehydration; E78.5 Hyperlipidemia, unspecified; E03.9 Hypothyroidism, unspecified; M81.0 Age-related osteoporosis without current pathological fracture; G25.81 Restless legs syndrome; F17.210 Nicotine dependence, cigarettes, uncomplicated; E87.6 Hypokalemia; I12.9 Hypertensive chronic kidney disease with stage 1 through stage 4 chronic kidney disease, or unspecified chronic kidney disease; N18.30 Chronic kidney disease, stage 3 unspecified; E83.42 Hypomagnesemia; Z20.822 Contact with and (suspected) exposure to COVID-19; Z88.8 Allergy status to other drugs, medicaments and biological substances
CPT/HCPCS: 36415; 80048; 80053; 81003; 83735; 85025; 85027; 85610; 86850; 86900; 86901; 87081; A4306; C1713; C1776; J0171; J1100; J1170; J1885; J2001; J2250; J2405; J2704; J2795; J3010; J3370-JW; J3475; J3490; J7050; S0020; U0002

== ENCOUNTER 2022-09-11 16:43 | Emergency (ER) | payer MEDICARE | END 2022-09-11 19:20 | disposition home or self-care (01) | LOC: ERS 16:43 | DX: M79.661 Pain in right lower leg (principal); E78.5 Hyperlipidemia, unspecified; I10 Essential (primary) hypertension; F17.210 Nicotine dependence, cigarettes, uncomplicated ==

== ENCOUNTER 2022-10-22 09:45 | Outpatient (CLI) | payer MEDICARE | END 2022-10-22 09:46 | disposition home or self-care (01) | LOC: BICMAMMO 09:45 | PROVIDERS: ATTEND Physician Assistant Medical | DX: Z12.31 Encounter for screening mammogram for malignant neoplasm of breast (principal) | CPT/HCPCS: 77063; 77067 ==

== ENCOUNTER 2023-11-14 11:26 | Outpatient (CLI) | payer MEDICARE | END 2023-11-14 11:27 | disposition home or self-care (01) | LOC: BICMAMMO 11:26 | PROVIDERS: ATTEND Internal Medicine | DX: Z12.31 Encounter for screening mammogram for malignant neoplasm of breast (principal) | CPT/HCPCS: 77063; 77067 ==

== ENCOUNTER 2025-02-01 10:43 | Outpatient (CLI) | payer MEDICARE | END 2025-02-01 10:44 | disposition home or self-care (01) | LOC: BICMAMMO 10:43 | PROVIDERS: ATTEND Internal Medicine | DX: Z12.31 Encounter for screening mammogram for malignant neoplasm of breast (principal); M81.0 Age-related osteoporosis without current pathological fracture; M85.851 Other specified disorders of bone density and structure, right thigh; M85.852 Other specified disorders of bone density and structure, left thigh | CPT/HCPCS: 77063; 77067; 77080 ==